=== PATIENT | male | born 1940 | race Caucasian/White ===

== ENCOUNTER 2016-08-17 13:08 | Day surgery (SDC) | payer OTHER, MEDICARE ==
[~2016-08-17] VITALS: Ht 172.7 cm; Wt 62.2 kg
[~2016-08-17 13:08] MED LIST: ALPR.5 PO; ARIC5TAB PO; CALC500 PO; CITA20TA4 PO; DICY10CA13 PO; LUTE20CA PO; METO25CR PO; NAME5TAB2 PO; OMEG100010 PO; PLAV75TA PO; PROT40TA PO; REME15TA PO; SIMV40TA PO; TAB-TAB PO; VITA500T49 PO
[2016-08-17 13:33] VITALS: BP 165/86; PULSE 60; RESP 18; TEMP 98.6; O2SAT 92
[2016-08-17 14:16] LABS: AUTOMATED NEUTROPHIL # 4.7 TH/MM3 (1.8-7.7); BASOPHIL # 0.1 TH/MM3 (0-0.2); EOSINOPHIL # 1.1 TH/MM3 (0-0.4); EOSINOPHIL % 13.5 % (0.0-4.0); HEMATOCRIT 37.5 % (39.0-51.0); HEMO FLAGS DIFF FINAL; LYMPH % 16.5 % (9.0-44.0); LYMPHOCYTE # 1.3 TH/MM3 (1.0-4.8); MEAN CELL VOLUME 90.9 FL (80.0-100.0); MEAN CORPUSCULAR HEMOGLOBIN 29.6 PG (27.0-34.0); MEAN CORPUSCULAR HGB CONC 32.5 % (32.0-36.0); PLATELET COUNT 341 TH/MM3 (150-450); RED BLOOD COUNT 4.13 MIL/MM3 (4.50-5.90); RED CELL DISTRIBUTION WIDTH 13.5 % (11.6-17.2); WHITE BLOOD COUNT 7.9 TH/MM3 (4.0-11.0)
[2016-08-17 14:25] LABS: APTT (PATIENT) 30.4 SEC (24.3-30.1); PROTHROMBIN TIME - PATIENT 10.8 SEC (9.8-11.6)
[2016-08-17] MEDS ORDERED: OMEP20TA PO (14:25)
[2016-08-17] MEDS ORDERED: MIRTA15 PO (14:25)
[2016-08-17] MEDS ORDERED: ARIC10TA2 PO (14:25)
[2016-08-17] MEDS ORDERED: [UNRECOGNIZED DRUG - CODE] PO (14:25)
[2016-08-17] MEDS ORDERED: ZOLO100T PO (14:25)
[2016-08-17] MEDS ORDERED: CYAN1TAB22 PO (14:25)
[2016-08-17] MEDS ORDERED: NAME10TA PO (14:25)
[2016-08-17] MEDS ORDERED: PLAV75TA29 PO (14:25)
[2016-08-17] MEDS ORDERED: ASPI81CH37 CHEW (14:25)
[2016-08-17] MEDS ORDERED: METO50TA PO (14:25)
[2016-08-17] MEDS ORDERED: CHOL400D2 PO (14:25)
[2016-08-17] MEDS ORDERED: XANA1TAB2 PO (14:25)
[2016-08-17] MEDS ORDERED: PANT40TA3 PO (14:25)
[2016-08-17] MEDS ORDERED: DICY10CA12 PO (14:25)
[2016-08-17] MEDS ORDERED: LUTE40CA2 PO (14:25)
[2016-08-17] MEDS ORDERED: OMEG1CAP50 PO (14:25)
[2016-08-17] MEDS ORDERED: ZOCO40TA PO (14:25)
--- NOTE | 2016-08-17 14:50 | RADRPT ---
EXAM DATE/TIME: 08/17/2016 13:32 [facility] COMPARISON: No previous studies available for comparison. EXTERNAL COMPARISON : [facility], CT Chest, July 27, 2016POI, Chest Xray, 07/14/16. INDICATIONS : Left pleural effusion; chest marking. MEDICAL HISTORY : Myocardial infarction. Hypercholesterolemia. Chronic obstructive pulmonary disease. Hypertension. DV T. Hiatal hernia. Prostate cancer. Kidney stents. SURGICAL HISTORY : Tonsillectomy. CABG. Prostatectomy. [place] filter. Colon resection. Celiac artery stent. Right total hip. ENCOUNTER: Initial ACUITY: 3 weeks PAIN SCORE: 0/10 LOCATION: Left chest MEASUREMENTS: SKIN TO PARIETAL PLEURA: 2.1 cm SKIN TO MAX SAFE DEPTH: 4.3 cm ESTIMATED FLUID VOLUME: 503 cc FLUID COMPOSITION: complex FINDINGS: Pleural effusion as above. CONCLUSION: Moderate size left pleural effusion. Beny Guerra Jr., MD on August 17, 2016 at 14:48 Board Certified Radiologist. This report was verified electronically.
[2016-08-17 15:05] VITALS: BP 170/85; PULSE 58; RESP 18; O2SAT 91
[2016-08-17 15:20] VITALS: BP 143/84; PULSE 60; RESP 18; O2SAT 93
--- NOTE | 2016-08-17 15:34 | MR ---
cc: FREDY AMIN MD DATE: 08/17/2016 PROCEDURE Left thoracentesis. PREOPERATIVE DIAGNOSIS Left pleural effusion. CONSENT Informed consent was obtained from the patient. The procedure and complications including complication of anesthesia, pneumothorax requiring chest tube, bleeding complication due to blood vessels, lungs and nerves and arrhythmia were explained and he consented for the procedure. DETAILS OF PROCEDURE The left side of the chest was marked with ultrasound and cleaned with ChloraPrep. 1% lidocaine infiltration anesthesia was used. A 16-gauge Angiocath thoracentesis was done. Hemorrhagic fluid was obtained. It was hooked up to a vacuum bottle. About 250 cc of fluid was removed and then the fluid stopped. The procedure was terminated. She tolerated the procedure. The pleural fluid was sent for protein, glucose, LDH, cell count and differential, routine culture and cytology. Post-procedure chest x-ray was ordered to rule out pneumothorax. MD JEREMIE Diaz/WILLARD /3:11 PM /3:26 PM [email or web address]
--- NOTE | 2016-08-17 16:11 | RADRPT ---
EXAM DATE/TIME: 08/17/2016 15:07 [facility] COMPARISON: CHEST SINGLE AP, October 20, 2015, 13:11. INDICATIONS : S/p left side thoracentesis MEDICAL HISTORY : Hypertension. Stroke. Myocardial infarction. SURGICAL HISTORY : cabg vena cava filter ENCOUNTER: Initial ACUITY: 1 day PAIN SCORE: 0/10 LOCATION: Bilateral chest FINDINGS: A single portable frontal view the chest shows no pneumothorax following thoracentesis. Small bilater al pleural effusions are noted. The left is slightly larger than the right. No infiltrate. Heart is n ormal in size. Median sternotomy wires. The trachea is deviated towards the patient's right. CONCLUSION: 1. No pneumothorax following thoracentesis. 2. Tracheal deviation towards the patient's right. At some point a CT of the thorax with IV contrast is suggested to further evaluate. 3. Small bilateral pleural effusions. Beny Guerra Jr., MD on August 17, 2016 at 16:08 Board Certified Radiologist. This report was verified electronically.
[2016-08-17 16:47] LABS: PLEURAL FLUID PH 8.5
[2016-08-17 17:46] LABS: PLEURAL FLUID LYMPHS 42 %
[2016-08-19 04:26] LABS: BODY FLUID LDH 745 U/L (()); BODY FLUID LDH SOURCE PLEURAL (())
== END 2016-08-17 16:25 | disposition home or self-care (01) ==
LOC: HRAD 13:08 → HRIP 13:14 → HRAD 16:25
PROVIDERS: ATTEND Specialist
DX: J90 Pleural effusion, not elsewhere classified (principal); I10 Essential (primary) hypertension; I25.2 Old myocardial infarction; E78.00 Pure hypercholesterolemia, unspecified; J44.9 Chronic obstructive pulmonary disease, unspecified; Z85.46 Personal history of malignant neoplasm of prostate; Z95.1 Presence of aortocoronary bypass graft
CPT/HCPCS: 71010; 76604; 82945; 83615; 83986; 84155; 85025; 85610; 85730; 87070; 87205; 88112; 88305; 89051

== ENCOUNTER 2016-11-09 10:48 | Emergency (ER) | payer OTHER ==
[~2016-11-09] VITALS: Ht 175.3 cm; Wt 55.0 kg
[~2016-11-09 10:48] MED LIST changes: -ALPR.5 PO; +ARIC10TA2 PO; -ARIC5TAB PO; +ASPI81CH37 CHEW; -CALC500 PO; +CHOL400D2 PO; -CITA20TA4 PO; +CYAN1TAB22 PO; +DICY10CA12 PO; -DICY10CA13 PO; -LUTE20CA PO; +LUTE40CA2 PO; -METO25CR PO; +METO50TA PO; +MIRTA15 PO; +NAME10TA PO; -NAME5TAB2 PO; -OMEG100010 PO; +OMEG1CAP50 PO; +OMEP20TA PO; +PANT40TA3 PO; -PLAV75TA PO; +PLAV75TA29 PO; -PROT40TA PO; -REME15TA PO; -SIMV40TA PO; -TAB-TAB PO; -VITA500T49 PO; +XANA1TAB2 PO; +ZOCO40TA PO; +ZOLO100T PO; +[UNRECOGNIZED DRUG - CODE] PO
[2016-11-09 10:50] VITALS: BP 157/67; PULSE 45; RESP 14; TEMP 97.9; O2SAT 97
[2016-11-09 11:10] VITALS: BP 144/67; PULSE 48; RESP 16; O2SAT 100
--- NOTE | 2016-11-09 11:14 | PD ---
HPI Chief Complaint: Abdominal Pain Time Seen by Provider: 11:02 Travel History International Travel<30 days: No Contact w/Intl Traveler<30days: No Traveled to known affect area: No History of Present Illness HPI Patient comes in complaining of left upper quadrant abdominal pain ongoing intermittently for 2 months. Patient reports having a CAT scan done as outpatient about a week and a half ago, but has not got the results yet. Patient denies anything making this better or worse. Describes pain as a crampy /pressure-like in nature when it comes. Patient denies any fevers, chest pain, shortness of breath, nausea, vomiting, loss or change in bowel or bladder, numbness or tingling anywhere, or known injury. Patient reports history of celiac's and perforated colon 2 episodes. Denies any radiation of the pain. Denies any pain currently. PFSH Past Medical History Hx Anticoagulant Therapy: Yes Anemia: Yes (IRON INFUSIONS ONCE EVERY 3 WEEKS STARTED 01/2014) Arthritis: Yes Asthma: No Autoimmune Disease: No Blood Disorders: No Anxiety: Yes Depression: Yes Heart Rhythm Problems: No Cancer: Yes (PROSTATE) Cardiac Catheterization: Yes Cardiovascular Problems: Yes High Cholesterol: Yes Chemotherapy: No Chest Pain: Yes Congestive Heart Failure: No COPD: No Cerebrovascular Accident: Yes (2013) Coronary Artery Disease: Yes Diabetes: Yes Diminished Hearing: No Deep Vein Thrombosis: Yes (BILATERAL 5 YRS AGO) Endocrine: Yes Gastrointestinal Disorders: Yes (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) GERD: Yes Glaucoma: No Genitourinary: Yes (KINDNEY STENTS) Headaches: No Hepatitis: No Hiatal Hernia: Yes Hypertension: Yes Immune Disorder: No Implanted Vascular Access Dvce: Yes (IVC FILTER) Kidney Stones: No Musculoskeletal: No Neurologic: Yes (STROKES) Psychiatric: Yes Reproductive: Yes (HX OF PROSTATE CA) Respiratory: Yes (pulm emboli) Immunizations Current: Yes Migraines: No Myocardial Infarction: Yes (2008) Radiation Therapy: No Renal Failure: No Seizures: No Sickle Cell Disease: No Sleep Apnea: No Thyroid Disease: No Ulcer: No Past Surgical History Abdominal Surgery: Yes (perf bowel 2008, colon resection 2013;CELIAC ARTERY STENT, polyp removal ) AICD: No Appendectomy: No Arteriovenous Shunt: No Body Medical Devices: CORONARY STENT Cardiac Surgery: Yes (VENA CAVA FILTER) Cholecystectomy: No Coronary Artery Bypass Graft: Yes Ear Surgery: No Endocrine Surgery: No Eye Surgery: No Genitourinary Surgery: Yes (BILATERAL KIDNEY STENTS 2013) Gynecologic Surgery: No Insulin Pump: No Joint Replacement: Yes (RT HIP) Neurologic Surgery: No Oral Surgery: Yes (T&A) Pacemaker: No Prostatectomy: Yes Thoracic Surgery: No Tonsillectomy: Yes Other Surgery: Yes (PERF COLON X2) Social History 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) Tobacco Use: Yes (pipe 3 times daily) Substance Use: No Allergies-Medications (Allergen,Severity, Reaction): Coded Allergies: Iodinated Contrast- Oral and IV Dye (Unverified Allergy, Severe, ANAPHYLAXIS, 11/09/16) gluten (Unverified Allergy, Severe, 11/09/16) iodine (Unverified Allergy, Severe, ANAPHYLAXIS, 11/09/16) potassium iodide (Unverified Allergy, Severe, ANAPHYLAXIS, 11/09/16) povidone-iodine (Unverified Allergy, Severe, ANAPHYLAXIS, 11/09/16) sodium iodide (Unverified Allergy, Severe, ANAPHYLAXIS, 11/09/16) sodium iodide (Unverified Allergy, Severe, ANAPHYLAXIS, 11/09/16) morphine (Unverified Allergy, Unknown, 11/09/16) *MDRO Multi-Drug Resistant Organism (Verified Adverse Reaction, Unknown, 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 Reported Meds & Prescriptions Reported Meds & Active Scripts Active Reported Multiple Vitamin 1 Tab 1 Tab PO DAILY Mirtazapine 15 Mg Tab 15 Mg PO HS Aricept (Donepezil HCl) 10 Mg Tablet 1 Tab PO HS B-1 (Thiamine HCl) 100 Mg Tablet Unknown Dose PO HS [place] 3 500 500 mg ([place]-3 Fatty Acids) 1 Cap Cap 1 Cap PO HS Vitamin D (Cholecalciferol) 400 Unit/Ml Drops 600 Units PO HS Zocor (Simvastatin) 40 Mg Tab 40 Mg PO HS Metoprolol Tartrate 50 Mg Tab 50 Mg PO HS Omeprazole 20 Mg Tab 20 Mg PO DAILY Dicyclomine (Dicyclomine HCl) 10 Mg Cap 10 Mg PO QID Vitamin B-12 (Cyanocobalamin) 5,000 Mcg Tab 1 Tab PO DAILY Lutein 40 Mg Cap 45 Mg PO DAILY Xanax (Alprazolam) 1 Mg Tab 1 Mg PO TID Pantoprazole (Pantoprazole Sodium) 40 Mg Tab 40 Mg PO DAILY Namenda (Memantine) 10 Mg Tab 10 Mg PO BID Zoloft (Sertraline HCl) 100 Mg Tab 100 Mg PO BID Plavix (Clopidogrel Bisulfate) 75 Mg Tab 75 Mg PO DAILY Review of Systems Except as stated in HPI: all other systems reviewed are Neg Physical Exam Narrative GENERAL: Well-developed, well nourished, in no acute distress, and non-ill appearing. SKIN: Focused skin assessment warm and dry. Previous surgical scar noted on abdomen. HEAD: Atraumatic. Normocephalic. EYES: Pupils equal and round. EOMI. No scleral icterus. No injection or drainage. ENT: No nasal bleeding or discharge. Mucous membranes pink and moist. NECK: Trachea midline. Supple. No nuclear rigidity. CARDIOVASCULAR: Regular rate and rhythm. No murmur appreciated. RESPIRATORY: No accessory muscle use. No respiratory distress. Clear to auscultation. Breath sounds equal bilaterally. GASTROINTESTINAL: Abdomen soft, non-tender, nondistended, and no guarding. Hepatic and splenic margins not palpable. Normal bowel sounds 4. No pulsatile mass. MUSCULOSKELETAL: No obvious deformities. No clubbing. No cyanosis. No edema. Full range of motion. NEUROLOGICAL: Awake and alert. No obvious cranial nerve deficits. Motor grossly within normal limits. Normal speech. PSYCHIATRIC: Appropriate mood and affect; insight and judgment normal. Data Data Last Documented VS Vital Signs Date Time Temp Pulse Resp B/P (MAP) Pulse Ox O2 Delivery O2 Flow Rate FiO2 11/09/16 14:11 60 18 152/60 (90) 99 11/09/16 11:10 Room Air 11/09/16 10:50 97.9 Orders Orders Complete Blood Count With Diff (11/09/16 11:07) Comprehensive Metabolic Panel (11/09/16 11:07) Lipase (11/09/16 11:07) Prothrombin Time / Inr (Pt) (11/09/16 11:07) Act Partial Throm Time (Ptt) (11/09/16 11:07) Iv Access Insert/Monitor (11/09/16 11:07) Ecg Monitoring (11/09/16 11:07) Oximetry (11/09/16 11:07) Sodium Chloride 0.9% Flush (Ns Flush) (11/09/16 11:15) Labs Laboratory Tests Test 11/09/16 11:15 11/09/16 12:45 White Blood Count 6.9 TH/MM3 Red Blood Count 4.25 MIL/MM3 Hemoglobin 12.5 GM/DL Hematocrit 38.1 % Mean Corpuscular Volume 89.6 FL Mean Corpuscular Hemoglobin 29.4 PG Mean Corpuscular Hemoglobin Concent 32.9 % Red Cell Distribution Width 15.1 % Platelet Count 233 TH/MM3 Mean Platelet Volume 7.9 FL Neutrophils (%) (Auto) 58.6 % Lymphocytes (%) (Auto) 22.4 % Monocytes (%) (Auto) 11.8 % Eosinophils (%) (Auto) 6.3 % Basophils (%) (Auto) 0.9 % Neutrophils # (Auto) 4.0 TH/MM3 Lymphocytes # (Auto) 1.5 TH/MM3 Monocytes # (Auto) 0.8 TH/MM3 Eosinophils # (Auto) 0.4 TH/MM3 Basophils # (Auto) 0.1 TH/MM3 CBC Comment DIFF FINAL Differential Comment Prothrombin Time 10.9 SEC Prothromb Time International Ratio 1.0 RATIO Activated Partial Thromboplast Time 26.6 SEC Blood Urea Nitrogen 13 MG/DL Creatinine 0.97 MG/DL Random Glucose 75 MG/DL Total Protein 6.4 GM/DL Albumin 2.9 GM/DL Calcium Level 8.3 MG/DL Alkaline Phosphatase 63 U/L Aspartate Amino Transf (AST/SGOT) 14 U/L Alanine Aminotransferase (ALT/SGPT) 18 U/L Total Bilirubin 0.2 MG/DL Sodium Level 139 MEQ/L Potassium Level 4.2 MEQ/L Chloride Level 106 MEQ/L Carbon Dioxide Level 29.5 MEQ/L Anion Gap 4 MEQ/L Estimat Glomerular Filtration Rate 76 ML/MIN Lipase 86 U/L [facility] Medical Decision Making Medical Screen Exam Complete: Yes Emergency Medical Condition: Yes Interpretation(s) CT the abdomen and pelvis dated October 28, 2016 performed at [facility] read by the radiologist shows: 1. Hypodense lesion in the central aspect of the liver not clearly identified on the previous liver MRI. Hepatic ultrasound is recommended 2. Stable rounded atelectasis right lung base. 3. Vascular stents and IVC filter. 4. No etiology for left upper quadrant pain seen. Differential Diagnosis Electrolyte abnormality, abdominal pain, perforation, diverticulitis, other Narrative Course The patient presented with nonspecific abdominal pain. There was no significant history of vomiting or diarrhea and no fever. The patient appeared comfortable, well hydrated and the abdominal exam was non-tender to me. Laboratory and radiologic evaluation revealed no significant abnormalities. There was no evidence of an acute, surgical abdomen at this time. There was no clinical evidence to support appendicitis, bowel obstruction, cholecystitis/ cholelithiasis, pancreatitis, perforation of gastric ulcer, colitis, diverticulitis, bacterial peritonitis, obstruction, volvulus, hernial incarceration or strangulation at this time. There was no evidence to support vascular pathology such as AAA, mesenteric ischemia. There was also no clinical evidence by history, exam or risk factors to suggest atypical presentation of cardiac disease such as ACS, AMI or atypical angina. No evidence to suggest genitourinary etiology as well. Clinical picture was discussed with the patient , as well as plan of care. The patient was instructed to follow up with their physician. Abdominal pain warnings were discussed with the patient. The patient is to return if worsens, pain worsens or changes, develop fever, inability to tolerate fluids with or without vomiting, unable to establish follow up or as needed. The patient agrees with plan. Patient in no obvious distress upon re-evaluation. All pertinent laboratory/ Radiology result(s) discussed with patient/family. Discussed patient with Dr. Fajardo prior to discharge, who is in agreement with plan of care and disposition. Any questions/concerns in reference to patient diagnosis/ condition discussed and clarified prior to patient's discharge. Reinforced sheer importance of close follow up with patient's primary physician or primary care clinic. Instructed patient to return to ED immediately, if symptoms return/ worsen. Patient showed understanding of above instructions. Further instructions and recommendations were detailed in discharge paperwork. Patient ambulated without difficulty out of ED at discharge. Diagnosis Primary Impression: Abdominal pain Qualified Codes: R10.12 - Left upper quadrant pain Patient Instructions: Abdominal Pain (ED), General Instructions Additional Instructions: Follow-up with your primary care physician and/or GI doctor next week for reevaluation. Return to the emergency department if symptoms get worse. Disposition: 01 DISCHARGE HOME Condition: Stable [place] Swan Nov 09, 2016 11:14
[2016-11-09] MEDS ORDERED: SODIUM CHLORIDE 0.9% FLUSH 10 ML FLUSH IV FLUSH PRN (11:15)
[2016-11-09] MEDS ORDERED: MULTTAB67 PO (11:20)
[2016-11-09 11:40] LABS: BASOPHIL # 0.1 TH/MM3 (0-0.2); BASOPHIL % 0.9 % (0.0-2.0); EOSINOPHIL # 0.4 TH/MM3 (0-0.4); EOSINOPHIL % 6.3 % (0.0-4.0); HEMATOCRIT 38.1 % (39.0-51.0); HEMO FLAGS DIFF FINAL; LYMPH % 22.4 % (9.0-44.0); LYMPHOCYTE # 1.5 TH/MM3 (1.0-4.8); MEAN CELL VOLUME 89.6 FL (80.0-100.0); MEAN CORPUSCULAR HEMOGLOBIN 29.4 PG (27.0-34.0); MEAN CORPUSCULAR HGB CONC 32.9 % (32.0-36.0); MONO % 11.8 % (0.0-8.0); NEUT % 58.6 % (16.0-70.0); PLATELET COUNT 233 TH/MM3 (150-450); RED BLOOD COUNT 4.25 MIL/MM3 (4.50-5.90); RED CELL DISTRIBUTION WIDTH 15.1 % (11.6-17.2); WHITE BLOOD COUNT 6.9 TH/MM3 (4.0-11.0)
[2016-11-09 13:22] LABS: PROTHROMBIN TIME - PATIENT 10.9 SEC (9.8-11.6)
[2016-11-09 13:23] LABS: APTT (PATIENT) 26.6 SEC (24.3-30.1)
[2016-11-09 13:31] LABS: ANION GAP 4 MEQ/L (5-15); AST (GOT) 14 U/L (15-37); BICARBONATE 29.5 MEQ/L (21.0-32.0); BLOOD UREA NITROGEN 13 MG/DL (7-18); CHLORIDE 106 MEQ/L (98-107); GLOMERULAR FILTRATION RATE 76 ML/MIN (>89); POTASSIUM 4.2 MEQ/L (3.5-5.1); SODIUM (NA) 139 MEQ/L (136-145)
[2016-11-09 13:36] LABS: ALKALINE PHOSPHATASE 63 U/L (45-117); ALT (GPT) 18 U/L (12-78); TOTAL BILIRUBIN ADULT 0.2 MG/DL (0.2-1.0)
[2016-11-09 14:05] VITALS: BP 154/74; PULSE 55; RESP 16; O2SAT 96
[2016-11-09 14:11] VITALS: BP 152/60
== END 2016-11-09 14:14 | disposition home or self-care (01) ==
LOC: NEPC 10:48
DX: R10.12 Left upper quadrant pain (principal); D64.9 Anemia, unspecified; E11.9 Type 2 diabetes mellitus without complications; I10 Essential (primary) hypertension; I25.10 Atherosclerotic heart disease of native coronary artery without angina pectoris; E78.00 Pure hypercholesterolemia, unspecified; F41.9 Anxiety disorder, unspecified; Z86.73 Personal history of transient ischemic attack (TIA), and cerebral infarction without residual deficits; Z86.718 Personal history of other venous thrombosis and embolism
CPT/HCPCS: 80053; 83690; 85025; 85610; 85730; 99283